=== PATIENT | female | born 1985 | race Caucasian/White ===

== ENCOUNTER 2016-05-24 17:40 | Emergency (ER) | payer OTHER ==
[~2016-05-24 17:40] MED LIST: ACET65SU PO; DIBU1OIN TOP; IBUP800T23 PO; PRENMIS3 PO
[2016-05-24 19:20] LABS: BASO % 0.3 % (0.0-1.0); EOS % 0.6 % (0.0-3.0); LARGE UNSTAINED CELL # 0.1 K/mm3 (0.0-0.4); LARGE UNSTAINED CELL % 1.3 % (0.0-4.0); LYMPH # 0.6 K/mm3 (1.5-4.5); LYMPH % 7.3 % (24.0-44.0); MEAN CORPUSCULAR HEMOGLOBIN 20.1 pg (27.0-33.0); MEAN CORPUSCULAR HGB CONC 30.3 g/dl (32.0-36.5); MEAN CORPUSCULAR VOLUME 66.3 fl (80.0-96.0); MONO # 0.2 K/mm3 (0.0-0.8); MONO % 2.5 % (0.0-5.0); NEUTROPHILS # 6.8 K/mm3 (1.8-7.7); PLATELET COUNT, AUTOMATED 209 k/mm3 (150-450); RED CELL DISTRIBUTION WIDTH 17.6 % (11.5-14.5); WHITE BLOOD COUNT 7.8 K/mm3 (4.0-10.0)
[2016-05-24 19:21] LABS: ADD MORPHOLOGY? YES
[2016-05-24 19:36] LABS: ALBUMIN 3.4 GM/DL (3.2-5.2); ALBUMIN/GLOBULIN RATIO 0.97 (1.00-1.93); ALKALINE PHOSPHATASE 63 U/L (45-117); ALT/SGPT 16 U/L (12-78); ANION GAP 10 MEQ/L (8-16); AST/SGOT 25 U/L (15-37); BILIRUBIN,DIRECT 0.1 MG/DL (0.0-0.2); BILIRUBIN,TOTAL 0.5 MG/DL (0.2-1.0); BLOOD UREA NITROGEN 10 MG/DL (7-18); CALCIUM LEVEL 8.2 MG/DL (8.5-10.1); CARBON DIOXIDE LEVEL 20 MEQ/L (21-32); CHLORIDE LEVEL 107 MEQ/L (98-107); CREATININE FOR GFR 0.51 MG/DL (0.55-1.02); GLOMERULAR FILTRATION RATE > 60.0 (>60); GLUCOSE, FASTING 99 MG/DL (70-105); POTASSIUM SERUM 4.5 MEQ/L (3.5-5.1); SODIUM LEVEL 137 MEQ/L (136-145); TOTAL PROTEIN 6.9 GM/DL (6.4-8.2)
--- NOTE | 2016-05-24 20:00 | REPUSA ---
Clinical history: Right lower quadrant pain. Findings: Real time ultrasound of the right lower quadrant of the abdomen was obtained. The appendix is not clearly visualized. No abnormal bowel is seen. There is trace amount of free fluid appreciate d. No loculated fluid collection is identified. Impression: Trace amount of free fluid in the right lower quadrant. The appendix is not clearly visua lized.
--- NOTE | 2016-05-24 20:00 | REPUSA ---
OBSTETRICAL ULTRASOUND INDICATION: OB screening. FINDINGS: A single live intrauterine gestation was identified with a heart rate of 165 bpm. The amniotic fluid index was normal. The placenta was anterior, without evidence of placenta previa. The fetus was in a variable position. The cervix measures 3.69 cm in length and is closed. Limited visua lized anatomy is unremarkable. BIOMETRIC MEASUREMENTS BPD 2.7 cm HC 9.6 cm AC 7.9 cm FL 1.3 cm IMPRESSION: 1. Single live fetus based on today's measurements at 14 weeks 1 days, with an estimated due date of 11/21/2016. 2. No gross abnormality appreciated.
[2016-05-24] MEDS ORDERED: METOCLOPRAMIDE INJ 10MG/2ML VIAL (J2765) As Ordered ONE (20:06)
[2016-05-24 20:19] LABS: ANISOCYTOSIS 1+; HYPOCHROMASIA 1+; MICROCYTOSIS 3+
[2016-05-24 20:20] LABS: POIKILOCYTOSIS 1+
[2016-05-24 20:21] LABS: SCHISTOCYTES 1+
--- NOTE | 2016-05-24 21:23 | EDDOCDS ---
Nurse's Notes [facility] Name: Mariya Servin Age: 31 yrs Sex: Female : 1985 Arrival Date: 05/24/2016 Time: 17:40 Bed I2 / M2 Private MD: Jasmin - Complete Info On Cds Diagnosis: Vomiting;Diarrhea, unspecified Presentation: 05/24 17:44 Presenting complaint: Patient states: n/v/d, headache since 6am today. 14 weeks ttb . Abd cramping. No vag bleeding. Adult Sepsis Screening: The patient does not have new or worsening altered mentation. Patient's respiratory rate is less than 22. Systolic blood pressure is greater than 100. Patient has a qSOFA score of 0- Negative Sepsis Screen. Suicide/Homicide risk assessment- the patient denies having any suicidal and/or homicidal ideations and does not present with any other emotional, behavioral or mental health complaints. Status: The patient is a dependent. Transition of care: Patient was received from [facility]. 17:44 Acuity: TANNER Level 3 ttb 17:44 Method Of Arrival: Walkin/Carried/Asstd ttb Triage Assessment: 17:46 General: Appears uncomfortable, well nourished. Pain: Location: lower abd cramping ttb 09/21. HIV screening NA for this visit Offered previously. Neurological: Level of Consciousness is awake, alert. Respiratory: No deficits noted. GI: Reports diarrhea, nausea, vomiting. : Reports urinary frequency. Derm: Skin is pale. 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 Vitamin Oral tab 1 tab once daily (Last dose: 05/23/2016) - PSHx: Laparoscopy; - Social history: Smoking status: Patient states was never smoker of tobacco. Patient/guardian denies using alcohol, street drugs, No barriers to communication noted, The patient speaks fluent [place], Speaks appropriately for age. - Family history: Not pertinent. - : The pt / caregiver states he / she is not on anticoagulants. Home medication list is obtained from the patient. - Exposure Risk Screening:: None identified. Screenin:16 Screening information is obtained from the patient. Fall risk: No risks identified. kas2 Assistance ADL's: requires no assistance with activities of daily living. Abuse/DV Screen: The patient / caregiver reports he/she is: not in a situation that causes fear, pain or injury. Nutritional screening: No deficits noted. Advance Directives: Currently, there is no health care proxy. There is no active DNR order. There is no living will. There is no Power of Replenishment Buyer. home support is adequate. Assessment: 19:14 General: Appears in no apparent distress, comfortable, well nourished, well groomed, kas2 Behavior is appropriate for age, cooperative. Pain: Denies pain. Neurological: Level of Consciousness is awake, alert, Oriented to person, place, time. Cardiovascular: Capillary refill < 3 seconds Heart tones S1 S2 present Rhythm is sinus tachycardia No ectopy. Respiratory: Airway is patent Respiratory effort is even, unlabored, Breath sounds are clear bilaterally. GI: Bowel sounds present X 4 quads. Abd is soft and non tender X 4 quads. Derm: Skin is intact, Skin is dry, Skin is pink, warm & dry. Skin temperature is warm. 20:14 General: Appears in no apparent distress, comfortable, Behavior is appropriate for age, kas2 cooperative. Pain: Denies pain. Neurological: Level of Consciousness is awake, alert, Oriented to person, place, time. Respiratory: Airway is patent Respiratory effort is even, unlabored. GI: Reports nausea. Derm: Skin is intact, Skin is dry, Skin is pale, Skin temperature is warm. 20:35 General: Patient up to bathroom to void. Resettled in bed. No apparent distress. kas2 Patient states nausea has subsided. Pale in color. Call griggs within reach. Will continue to monitor.. 20:59 General: Pt laying in bed. Second bolus infusing. Will continue to monitor. ld5 Vital Signs: 17:42 BP 101 / 71; Pulse 117; Resp 16; Temp 99.6(O); Pulse Ox 100% on R/A; Weight 57.61 kg; sew Height 5 ft. 10 in. (177.80 cm); Pain 10/10; 17:42 Body Mass Index 18.22 (57.61 kg, 177.80 cm) sew Vitals: 17:42 Log In Time: May 24, 2016 at 17:31. sew ED Course: 17:42 Patient visited by Marcy King. sew 17:42 Other - Complete Info On Cds is Private Physician. sew 17:42 Patient moved to Waiting sew 17:43 Patient visited by Marcy King. sew 17:43 Patient moved to Pre RCE sew 17:46 Triage Initiated ttb 17:47 Patient moved to Triage 1 ttb 18:24 Devang Pelaez PA is PHCP. mo1 18:24 Tiffany Erickson MD is Attending Physician. mo1 18:31 Patient visited by Devang Pelaez PA. mo1 18:49 Patient moved to I2 / M2 rs6 18:50 Urinalysis Sent. rs6 18:50 Urine Culture Sent. rs6 18:51 Patient visited by Kathrine Stewart PCA. rs6 18:51 Urine collected. Clean catch specimen. Urine specimen sent to lab. rs6 19:00 [facility] Payment Agreement was scanned into [employer] and attached to record. gjb 19:06 Basic Metabolic Profile Sent. kas2 19:06 CBC with Diff Sent. kas2 19:07 Lipase Sent. kas2 19:07 Liver Profile Sent. kas2 19:12 Patient moved to Ultrasound am17 19:16 Patient visited by Cheryl Parry RN. kas2 19:16 Inserted saline lock: 20 gauge in right forearm and blood collected. The patient kas2 tolerated the procedure well. No procedures done that require assistance. 19:35 Patient moved to I2 / M2 am17 19:38 Patient visited by Cheryl Parry RN. kas2 20:14 Patient visited by Cheryl Parry RN. kas2 20:26 US Abd Limited Returned. EDMS 20:26 US Obs Single Gest Returned. EDMS 20:33 Patient visited by Cheryl Parry RN. kas2 20:36 Patient visited by Cheryl Parry RN. kas2 20:59 Patient visited by Carli Smith RN. ld5 21:19 Discontinued IV bleeding controlled, pressure dressing applied, No redness/swelling at kas2 site. 21:22 Patient visited by Cheryl Parry RN. kas2 21:22 The patient / caregiver is instructed regarding the plan of care and ED course. kas2 Administered Medications: 19:06 Drug: NS 0.9% 1000 ml [sodium chloride 0.9 % intravenous solution] Route: IV; Rate: kas2 bolus; Site: right forearm; 20:33 Follow up: IV Status: Completed infusion; IV Intake: 1000ml kas2 20:13 Drug: Metoclopramide 10 mg [metoclopramide 5 mg/mL injection solution] Route: IV; Rate: kas2 40 mg/hr; Infused Over: 15 mins; Site: right antecubital; 20:58 Follow up: IV Status: Completed infusion ld5 20:33 Drug: NS 0.9% 1000 ml [sodium chloride 0.9 % intravenous solution] Route: IV; Rate: kas2 bolus; Site: right antecubital; 21:19 Follow up: IV Status: Completed infusion; IV Intake: 1000ml kas2 Intake: 20:33 IV: 1000.00ml; Total: 1000.00ml. kas2 21:19 IV: 1000.00ml; Total: 2000.00ml. kas2 Order Results: Lab Order: Basic Metabolic Profile; SPEC'M 05/24/16 19:01 Test: GLUCOSE, FASTING; Value: 99; Range: 70-105; Units: MG/DL; Status: F Test: BLOOD UREA NITROGEN; Value: 10; Range: 7-18; Units: MG/DL; Status: F Test: CREATININE FOR GFR; Value: 0.51; Range: 0.55-1.02; Abnormal: Below low normal; Units: MG/DL; Status: F Test: GLOMERULAR FILTRATION RATE; Value: > 60.0; Range: >60; Status: F Test: SODIUM LEVEL; Value: 137; Range: 136-145; Units: MEQ/L; Status: F Test: POTASSIUM SERUM; Value: 4.5; Range: 3.5-5.1; Units: MEQ/L; Status: F Test: CHLORIDE LEVEL; Value: 107; Range: 98-107; Units: MEQ/L; Status: F Test: CARBON DIOXIDE LEVEL; Value: 20; Range: 21-32; Abnormal: Below low normal; Units: MEQ/L; Status: F Test: ANION GAP; Value: 10; Range: 8-16; Units: MEQ/L; Status: F Test: CALCIUM LEVEL; Value: 8.2; Range: 8.5-10.1; Abnormal: Below low normal; Units: MG/DL; Status: F Test Note: ; Units are mL/min/1.73 m2 Chronic Kidney Disease Staging per NKF: Stage I & II GFR >=60 Normal to Mildly Decreased Stage III GFR 30-59 Moderately Decreased Stage IV GFR 15-29 Severely Decreased Stage V GFR <15 Very Little GFR Left ESRD GFR <15 on 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 Lab Order: CBC with Diff; SPEC'M 05/24/16 19:01 Test: WHITE BLOOD COUNT; Value: 7.8; Range: 4.0-10.0; Units: K/mm3; Status: F Test: RED BLOOD COUNT; Value: 4.91; Range: 4.00-5.40; Units: M/mm3; Status: F Test: HEMOGLOBIN; Value: 9.9; Range: 12.0-16.0; Abnormal: Below low normal; Units: g/dl; Status: F Test: HEMATOCRIT; Value: 32.6; Range: 36.0-47.0; Abnormal: Below low normal; Units: %; Status: F Test: MEAN CORPUSCULAR VOLUME; Value: 66.3; Range: 80.0-96.0; Abnormal: Below low normal; Units: fl; Status: F Test: MEAN CORPUSCULAR HEMOGLOBIN; Value: 20.1; Range: 27.0-33.0; Abnormal: Below low normal; Units: pg; Status: F Test: MEAN CORPUSCULAR HGB CONC; Value: 30.3; Range: 32.0-36.5; Abnormal: Below low normal; Units: g/dl; Status: F Test: RED CELL DISTRIBUTION WIDTH; Value: 17.6; Range: 11.5-14.5; Abnormal: Above high normal; Units: %; Status: F Test: PLATELET COUNT, AUTOMATED; Value: 209; Range: 150-450; Units: k/mm3; Status: F Test: NEUTROPHILS %; Value: 88.0; Range: 36.0-66.0; Abnormal: Above high normal; Units: %; Status: F Test: LYMPH %; Value: 7.3; Range: 24.0-44.0; Abnormal: Below low normal; Units: %; Status: F Test: MONO %; Value: 2.5; Range: 0.0-5.0; Units: %; Status: F Test: EOS %; Value: 0.6; Range: 0.0-3.0; Units: %; Status: F Test: BASO %; Value: 0.3; Range: 0.0-1.0; Units: %; Status: F Test: LARGE UNSTAINED CELL %; Value: 1.3; Range: 0.0-4.0; Units: %; Status: F Test: NEUTROPHILS #; Value: 6.8; Range: 1.8-7.7; Units: K/mm3; Status: F Test: LYMPH #; Value: 0.6; Range: 1.5-4.5; Abnormal: Below low normal; Units: K/mm3; Status: F Test: MONO #; Value: 0.2; Range: 0.0-0.8; Units: K/mm3; Status: F Test: EOS #; Value: 0.0; Range: 0.0-0.50; Units: K/mm3; Status: F Test: BASO #; Value: 0.0; Range: 0.0-0.2; Units: K/mm3; Status: F Test: LARGE UNSTAINED CELL #; Value: 0.1; Range: 0.0-0.4; Units: K/mm3; Status: F Lab Order: Lipase; [facility] 05/24/16 19:01 Test: LIPASE; Value: 106; Range: 73-393; Units: U/L; Status: F Lab Order: Liver Profile; [facility] 05/24/16 19:01 Test: AST/SGOT; Value: 25; Range: 15-37; Units: U/L; Status: F Test: ALT/SGPT; Value: 16; Range: 12-78; Units: U/L; Status: F Test: ALKALINE PHOSPHATASE; Value: 63; Range: 45-117; Units: U/L; Status: F Test: BILIRUBIN,TOTAL; Value: 0.5; Range: 0.2-1.0; Units: MG/DL; Status: F Test: BILIRUBIN,DIRECT; Value: 0.1; Range: 0.0-0.2; Units: MG/DL; Status: F Test: TOTAL PROTEIN; Value: 6.9; Range: 6.4-8.2; Units: GM/DL; Status: F Test: ALBUMIN; Value: 3.4; Range: 3.2-5.2; Units: GM/DL; Status: F Test: ALBUMIN/GLOBULIN RATIO; Value: 0.97; Range: 1.00-1.93; Abnormal: Below low normal; Status: F Lab Order: Urinalysis; SPEC'M 05/24/16 18:50 Test: APPEARANCE, URINE; Value: CLEAR; Range: CLEAR; Status: F Test: COLOR, URINE; Value: YELLOW; Range: YELLOW; Status: F Test: PH,URINE; Value: 6.0; Range: 5.0-9.0; Units: UNITS; Status: F Test: SPECIFIC GRAVITY URINE AUTO; Value: 1.025; Range: 1.002-1.035; Status: F Test: PROTEIN, URINE AUTO; Value: NEGATIVE; Range: NEGATIVE; Units: mg/dL; Status: F Test: GLUCOSE, URINE (UA) AUTO; Value: NEGATIVE; Range: NEGATIVE; Units: mg/dL; Status: F Test: KETONE, URINE AUTO; Value: 1+; Range: NEGATIVE; Abnormal: Above high normal; Units: mg/dL; Status: F Test: UROBILINOGEN, URINE AUTO; Value: 0.2; Range: 0.0-2.0; Units: mg/dL; Status: F Test: BILIRUBIN, URINE AUTO; Value: NEGATIVE; Range: NEGATIVE; Status: F Test: NITRITE, URINE AUTO; Value: NEGATIVE; Range: NEGATIVE; Status: F Test: LEUKOCYTE ESTERASE, URINE AUTO; Value: NEGATIVE; Range: NEGATIVE; Status: F Test: BLOOD, URINE BLOOD; Value: NEGATIVE; Range: NEGATIVE; Status: F Test: WBC, URINE AUTO; Value: 0; Range: 0-3; Units: /HPF; Status: F Test: RBC, URINE AUTO; Value: 2; Range: 0-3; Units: /HPF; Status: F Test: BACTERIA, URINE AUTO; Value: NEGATIVE; Range: NEGATIVE; Status: F Test: SQUAMOUS EPITHELIAL CELL UR AU; Value: 2; Range: 0-6; Units: /HPF; Status: F Test: MUCUS, URINE; Value: SMALL; Range: NEGATIVE; Status: F Test: HYALINE CAST, URINE AUTO; Value: 0; Range: 0-1; Units: /LPF; Status: F Lab Order: RBC MORPH PROF NO CHARGE; SPEC'M 05/24/16 19:01 Test: PLATELET ESTIMATE; Range: NORMAL; Status: I Test: HYPOCHROMASIA; Value: 1+; Status: F Test: POIKILOCYTOSIS; Value: 1+; Status: F Test: ANISOCYTOSIS; Value: 1+; Status: F Test: MICROCYTOSIS; Value: 3+; Status: F Test: SCHISTOCYTES; Value: 1+; Status: F Test: PLATELET ESTIMATE; Value: NORMAL; Range: NORMAL; Status: F Radiology Order: US Obs Single Gest Test: US Obs Single Gest REASON FOR EXAMINATION: n/v/d, pelvic pain, 14wks; ; OBSTETRICAL ULTRASOUND; INDICATION: OB screening.; FINDINGS: A single live intrauterine gestation was identified with a heart rate of 165 bpm. The; amniotic fluid index was normal. The placenta was anterior, without evidence of placenta previa. The; fetus was in a variable position. The cervix measures 3.69 cm in length and is closed. Limited visua; lized anatomy is unremarkable.; ; BIOMETRIC MEASUREMENTS; BPD 2.7 cm; HC 9.6 cm; AC 7.9 cm; FL 1.3 cm; IMPRESSION:; 1. Single live fetus based on today's measurements at 14 weeks 1 days, with an estimated due date of; 11/21/2016.; 2. No gross abnormality appreciated.; ; Radiology Order: US Abd Limited Test: US Abd Limited REASON FOR EXAMINATION: Appendicitis; ; Clinical history: Right lower quadrant pain.; Findings: Real time ultrasound of the right lower quadrant of the abdomen was obtained. The appendix; is not clearly visualized. No abnormal bowel is seen. There is trace amount of free fluid appreciate; d. No loculated fluid collection is identified.; Impression: Trace amount of free fluid in the right lower quadrant. The appendix is not clearly visua; lized.; ; Outcome: 21:07 Discharge ordered by Provider. mo1 21:20 Discharge Assessment: patient administered narcotics - no. The following High Risk kas2 Discharge criteria are identified: None. Discharged to home ambulatory, with significant other. Condition: good Condition: stable Condition: improved. Ultrasound Study completed. Property :Personal belongings accompany Pt. 21:22 Patient left the ED. kas2 Signatures: Dispatcher [employer] EDSatya Sigalaa,RN RN ld5 Fernando, Cristine Bland, RN RN ttb Devang Pelaez PA PA mo1 Carol Son am Kathrine Stewart, CAFE SITE ATTENDANT CAFE SITE ATTENDANT rs6 Mercedes Camacho Kim,RN RN kas2 ROSALEED
--- NOTE | 2016-05-24 21:23 | EDDOCDS ---
Physician Documentation [facility] Name: Mariya Servin Age: 31 yrs Sex: Female : 1985 Arrival Date: 05/24/2016 Time: 17:40 Bed I2 / M2 Private MD: Other - Complete Info On Cds Disposition: 05/24/16 21:07 Discharged to Home/Self Care. Impression: Vomiting, Diarrhea, unspecified. - Condition is Stable. - Discharge Instructions: Food Choices to Help Relieve Diarrhea, Adult, Nausea and Vomiting. - Medication Reconciliation, Local Pharmacy Hours form. - Follow up: Private Physician; When: Call to arrange an appointment; Reason: Recheck today's complaints, Continuance of care. - Problem is new. - Symptoms are unchanged. Historical: - Allergies: no known allergies; - Home Meds: 1. Vitamin Oral tab 1 tab once daily (Last dose: 05/23/2016) - PSHx: Laparoscopy; - Social history: Smoking status: Patient states was never smoker of tobacco. Patient/guardian denies using alcohol, street drugs, No barriers to communication noted, The patient speaks fluent Taiwanese, Speaks appropriately for age. - Family history: Not pertinent. - : The pt / caregiver states he / she is not on anticoagulants. Home medication list is obtained from the patient. - Exposure Risk Screening:: None identified. 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 10 in. (177.80 cm); Pain 10/10; 17:42 Body Mass Index 18.22 (57.61 kg, 177.80 cm) sew MDM: 18:35 Financial registration complete. gjb 18:46 NS 0.9% 1000 ml IV at bolus once ordered. mo1 18:46 IV Saline Lock ordered. mo1 18:46 Undress patient appropriately for examination ordered. mo1 18:48 Basic Metabolic Profile Ordered. EDMS 18:48 CBC with Diff Ordered. EDMS 18:48 Lipase Ordered. EDMS 18:48 Liver Profile Ordered. EDMS 18:48 Urinalysis Ordered. EDMS 18:48 Urine Culture Ordered. EDMS 18:48 US Obs Single Gest Ordered. EDMS 18:48 NOTHING BY MOUTH+DIET ordered. EDMS 18:53 US Abd Limited Ordered. EDMS 19:00 [facility] Payment Agreement was scanned into [employer] and attached to record. gjb 19:33 CBC with Diff Reviewed. mo1 19:33 Urinalysis Reviewed. mo1 20:02 Metoclopramide 10 mg IV at 40 mg/hr once over 15 mins ordered. mo1 20:13 Basic Metabolic Profile Reviewed. mo1 20:13 Liver Profile Reviewed. mo1 20:13 Lipase Reviewed. mo1 20:14 RBC MORPH PROF NO CHARGE Reviewed. mo1 20:29 NS 0.9% 1000 ml IV at bolus once ordered. mo1 20:29 RBC MORPH PROF NO CHARGE Reviewed. mo1 20:31 US Abd Limited Reviewed. mo1 20:31 US Obs Single Gest Reviewed. mo1 20:31 CBC with Diff Reviewed. mo1 Administered Medications: 19:06 Drug: NS 0.9% 1000 ml [sodium chloride 0.9 % intravenous solution] Route: IV; Rate: kas2 bolus; Site: right forearm; 20:33 Follow up: IV Status: Completed infusion; IV Intake: 1000ml kas2 20:13 Drug: Metoclopramide 10 mg [metoclopramide 5 mg/mL injection solution] Route: IV; Rate: kas2 40 mg/hr; Infused Over: 15 mins; Site: right antecubital; 20:58 Follow up: IV Status: Completed infusion ld5 20:33 Drug: NS 0.9% 1000 ml [sodium chloride 0.9 % intravenous solution] Route: IV; Rate: kas2 bolus; Site: right antecubital; 21:19 Follow up: IV Status: Completed infusion; IV Intake: 1000ml kas2 Signatures: Dispatcher [employer] EDMS Cristine Loaiza RN RN ttb Devang Pelaez PA PA mo1 Mercedes Camacho Kim, RN RN kas2 Carli Smith RN ld5 The chart was reviewed and I authenticate all verbal orders and agree with the evaluation and treatment provided.Attachments: 19:00 [facility] [place] Agreement gjb MTDD
--- NOTE | 2016-05-26 22:23 | EDDOCDS ---
Physician Documentation [facility] Name: Mariya Servin Age: 31 yrs Sex: Female : 1985 Arrival Date: 05/24/2016 Time: 17:40 Bed I2 / M2 Private MD: Other - Complete Info On Cds Disposition: 05/24/16 21:07 Discharged to Home/Self Care. Impression: Vomiting, Diarrhea, unspecified. - Condition is Stable. - Discharge Instructions: Food Choices to Help Relieve Diarrhea, Adult, Nausea and Vomiting. - Medication Reconciliation, Local Pharmacy Hours form. - Follow up: Private Physician; When: Call to arrange an appointment; Reason: Recheck today's complaints, Continuance of care. - Problem is new. - Symptoms are unchanged. Historical: - Allergies: no known allergies; - Home Meds: 1. Vitamin Oral tab 1 tab once daily (Last dose: 05/23/2016) - PSHx: Laparoscopy; - Social history: Smoking status: Patient states was never smoker of tobacco. Patient/guardian denies using alcohol, street drugs, No barriers to communication noted, The patient speaks fluent Senegalese, Speaks appropriately for age. - Family history: Not pertinent. - : The pt / caregiver states he / she is not on anticoagulants. Home medication list is obtained from the patient. - Exposure Risk Screening:: None identified. 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 10 in. (177.80 cm); Pain 10/10; 17:42 Body Mass Index 18.22 (57.61 kg, 177.80 cm) sew MDM: 18:35 Financial registration complete. gjb 18:46 NS 0.9% 1000 ml IV at bolus once ordered. mo1 18:46 IV Saline Lock ordered. mo1 18:46 Undress patient appropriately for examination ordered. mo1 18:48 Basic Metabolic Profile Ordered. EDMS 18:48 CBC with Diff Ordered. EDMS 18:48 Lipase Ordered. EDMS 18:48 Liver Profile Ordered. EDMS 18:48 Urinalysis Ordered. EDMS 18:48 Urine Culture Ordered. EDMS 18:48 US Obs Single Gest Ordered. EDMS 18:48 NOTHING BY MOUTH+DIET ordered. EDMS 18:53 US Abd Limited Ordered. EDMS 19:00 [facility] Payment Agreement was scanned into [employer] and attached to record. gjb 19:33 CBC with Diff Reviewed. mo1 19:33 Urinalysis Reviewed. mo1 20:02 Metoclopramide 10 mg IV at 40 mg/hr once over 15 mins ordered. mo1 20:13 Basic Metabolic Profile Reviewed. mo1 20:13 Liver Profile Reviewed. mo1 20:13 Lipase Reviewed. mo1 20:14 RBC MORPH PROF NO CHARGE Reviewed. mo1 20:29 NS 0.9% 1000 ml IV at bolus once ordered. mo1 20:29 RBC MORPH PROF NO CHARGE Reviewed. mo1 20:31 US Abd Limited Reviewed. mo1 20:31 US Obs Single Gest Reviewed. mo1 20:31 CBC with Diff Reviewed. mo1 05/25 11:19 T-Sheet-- Draft Copy was scanned into foc[employer]us and attached to record. gb 15:57 Radiology Report was scanned into foc[employer]us and attached to record. gb 17:39 Radiology Report was scanned into foc[employer]us and attached to record. gb Administered Medications: 05/24 19:06 Drug: NS 0.9% 1000 ml [sodium chloride 0.9 % intravenous solution] Route: IV; Rate: kas2 bolus; Site: right forearm; 20:33 Follow up: IV Status: Completed infusion; IV Intake: 1000ml kas2 20:13 Drug: Metoclopramide 10 mg [metoclopramide 5 mg/mL injection solution] Route: IV; Rate: kas2 40 mg/hr; Infused Over: 15 mins; Site: right antecubital; 20:58 Follow up: IV Status: Completed infusion ld5 20:33 Drug: NS 0.9% 1000 ml [sodium chloride 0.9 % intravenous solution] Route: IV; Rate: kas2 bolus; Site: right antecubital; 21:19 Follow up: IV Status: Completed infusion; IV Intake: 1000ml kas2 Signatures: Dispatcher [employer] EDMS Karol Jernigan, Nghia Reg gb Cristine Loaiza, TO RN caitlinb Devang Pelaez PA PA mo1 Mercedes Camacho Kim, RN RN kas2 Carli Smith RN ld5 The chart was reviewed and I authenticate all verbal orders and agree with the evaluation and treatment provided.Attachments: 19:00 [facility] [place] gjb 05/25 11:19 T-Sheet-- Draft Copy gb Chart Complete MTDD
--- NOTE | 2016-05-26 22:23 | EDDOCDS ---
Nurse's Notes [facility] Name: Mariya Servin Age: 31 yrs Sex: Female : 1985 Arrival Date: 05/24/2016 Time: 17:40 Bed I2 / M2 Private MD: Jasmin - Complete Info On Cds Diagnosis: Vomiting;Diarrhea, unspecified Presentation: 05/24 17:44 Presenting complaint: Patient states: n/v/d, headache since 6am today. 14 weeks ttb . Abd cramping. No vag bleeding. Adult Sepsis Screening: The patient does not have new or worsening altered mentation. Patient's respiratory rate is less than 22. Systolic blood pressure is greater than 100. Patient has a qSOFA score of 0- Negative Sepsis Screen. Suicide/Homicide risk assessment- the patient denies having any suicidal and/or homicidal ideations and does not present with any other emotional, behavioral or mental health complaints. Status: The patient is a dependent. Transition of care: Patient was received from [facility]. 17:44 Acuity: TANNER Level 3 ttb 17:44 Method Of Arrival: Walkin/Carried/Asstd ttb Triage Assessment: 17:46 General: Appears uncomfortable, well nourished. Pain: Location: lower abd cramping ttb 09/21. HIV screening NA for this visit Offered previously. Neurological: Level of Consciousness is awake, alert. Respiratory: No deficits noted. GI: Reports diarrhea, nausea, vomiting. : Reports urinary frequency. Derm: Skin is pale. E LEARNING COORDINATOR: 17:46 LMP 02/19/2016 ttb Historical: - Allergies: no known allergies; - Home Meds: 1. Vitamin Oral tab 1 tab once daily (Last dose: 05/23/2016) - PSHx: Laparoscopy; - Social history: Smoking status: Patient states was never smoker of tobacco. Patient/guardian denies using alcohol, street drugs, No barriers to communication noted, The patient speaks fluent Amharic, Speaks appropriately for age. - Family history: Not pertinent. - : The pt / caregiver states he / she is not on anticoagulants. Home medication list is obtained from the patient. - Exposure Risk Screening:: None identified. Screenin:16 Screening information is obtained from the patient. Fall risk: No risks identified. kas2 Assistance ADL's: requires no assistance with activities of daily living. Abuse/DV Screen: The patient / caregiver reports he/she is: not in a situation that causes fear, pain or injury. Nutritional screening: No deficits noted. Advance Directives: Currently, there is no health care proxy. There is no active DNR order. There is no living will. There is no Power of Research Program Manager. home support is adequate. Assessment: 19:14 General: Appears in no apparent distress, comfortable, well nourished, well groomed, kas2 Behavior is appropriate for age, cooperative. Pain: Denies pain. Neurological: Level of Consciousness is awake, alert, Oriented to person, place, time. Cardiovascular: Capillary refill < 3 seconds Heart tones S1 S2 present Rhythm is sinus tachycardia No ectopy. Respiratory: Airway is patent Respiratory effort is even, unlabored, Breath sounds are clear bilaterally. GI: Bowel sounds present X 4 quads. Abd is soft and non tender X 4 quads. Derm: Skin is intact, Skin is dry, Skin is pink, warm & dry. Skin temperature is warm. 20:14 General: Appears in no apparent distress, comfortable, Behavior is appropriate for age, kas2 cooperative. Pain: Denies pain. Neurological: Level of Consciousness is awake, alert, Oriented to person, place, time. Respiratory: Airway is patent Respiratory effort is even, unlabored. GI: Reports nausea. Derm: Skin is intact, Skin is dry, Skin is pale, Skin temperature is warm. 20:35 General: Patient up to bathroom to void. Resettled in bed. No apparent distress. kas2 Patient states nausea has subsided. Pale in color. Call griggs within reach. Will continue to monitor.. 20:59 General: Pt laying in bed. Second bolus infusing. Will continue to monitor. ld5 Vital Signs: 17:42 BP 101 / 71; Pulse 117; Resp 16; Temp 99.6(O); Pulse Ox 100% on R/A; Weight 57.61 kg; sew Height 5 ft. 10 in. (177.80 cm); Pain 10/10; 17:42 Body Mass Index 18.22 (57.61 kg, 177.80 cm) sew Vitals: 17:42 Log In Time: May 24, 2016 at 17:31. sew ED Course: 17:42 Patient visited by Marcy King. sew 17:42 Other - Complete Info On Cds is Private Physician. sew 17:42 Patient moved to Waiting sew 17:43 Patient visited by Marcy King. sew 17:43 Patient moved to Pre RCE sew 17:46 Triage Initiated ttb 17:47 Patient moved to Triage 1 ttb 18:24 Devang Pelaez PA is PHCP. mo1 18:24 Tiffany Erickson MD is Attending Physician. mo1 18:31 Patient visited by Devang Pelaez PA. mo1 18:49 Patient moved to I2 / M2 rs6 18:50 Urinalysis Sent. rs6 18:50 Urine Culture Sent. rs6 18:51 Patient visited by Kathrine Stewart PCA. rs6 18:51 Urine collected. Clean catch specimen. Urine specimen sent to lab. rs6 19:00 [facility] Payment Agreement was scanned into [employer] and attached to record. gjb 19:06 Basic Metabolic Profile Sent. kas2 19:06 CBC with Diff Sent. kas2 19:07 Lipase Sent. kas2 19:07 Liver Profile Sent. kas2 19:12 Patient moved to Ultrasound am17 19:16 Patient visited by Cheryl Parry RN. kas2 19:16 Inserted saline lock: 20 gauge in right forearm and blood collected. The patient kas2 tolerated the procedure well. No procedures done that require assistance. 19:35 Patient moved to I2 / M2 am17 19:38 Patient visited by Cheryl Parry RN. kas2 20:14 Patient visited by Cheryl Parry RN. kas2 20:26 US Abd Limited Returned. EDMS 20:26 US Obs Single Gest Returned. EDMS 20:33 Patient visited by Cheryl Parry RN. kas2 20:36 Patient visited by Cheryl Parry RN. kas2 20:59 Patient visited by Carli Smith,TO. ld5 21:19 Discontinued IV bleeding controlled, pressure dressing applied, No redness/swelling at kas2 site. 21:22 Patient visited by Cheryl Parry RN. kas2 21:22 The patient / caregiver is instructed regarding the plan of care and ED course. [facility] 05/25 11:19 T-Sheet-- Draft Copy was scanned into [employer] and attached to record. gb 15:57 Radiology Report was scanned into [employer] and attached to record. gb 17:39 Radiology Report was scanned into [employer] and attached to record. gb Administered Medications: 05/24 19:06 Drug: NS 0.9% 1000 ml [sodium chloride 0.9 % intravenous solution] Route: IV; Rate: kas2 bolus; Site: right forearm; 20:33 Follow up: IV Status: Completed infusion; IV Intake: 1000ml kas2 20:13 Drug: Metoclopramide 10 mg [metoclopramide 5 mg/mL injection solution] Route: IV; Rate: kas2 40 mg/hr; Infused Over: 15 mins; Site: right antecubital; 20:58 Follow up: IV Status: Completed infusion ld5 20:33 Drug: NS 0.9% 1000 ml [sodium chloride 0.9 % intravenous solution] Route: IV; Rate: kas2 bolus; Site: right antecubital; 21:19 Follow up: IV Status: Completed infusion; IV Intake: 1000ml kas2 Intake: 20:33 IV: 1000.00ml; Total: 1000.00ml. kas2 21:19 IV: 1000.00ml; Total: 2000.00ml. kas2 Order Results: Lab Order: Basic Metabolic Profile; [facility] 05/24/16 19:01 Test: GLUCOSE, FASTING; Value: 99; Range: 70-105; Units: MG/DL; Status: F Test: BLOOD UREA NITROGEN; Value: 10; Range: 7-18; Units: MG/DL; Status: F Test: CREATININE FOR GFR; Value: 0.51; Range: 0.55-1.02; Abnormal: Below low normal; Units: MG/DL; Status: F Test: GLOMERULAR FILTRATION RATE; Value: > 60.0; Range: >60; Status: F Test: SODIUM LEVEL; Value: 137; Range: 136-145; Units: MEQ/L; Status: F Test: POTASSIUM SERUM; Value: 4.5; Range: 3.5-5.1; Units: MEQ/L; Status: F Test: CHLORIDE LEVEL; Value: 107; Range: 98-107; Units: MEQ/L; Status: F Test: CARBON DIOXIDE LEVEL; Value: 20; Range: 21-32; Abnormal: Below low normal; Units: MEQ/L; Status: F Test: ANION GAP; Value: 10; Range: 8-16; Units: MEQ/L; Status: F Test: CALCIUM LEVEL; Value: 8.2; Range: 8.5-10.1; Abnormal: Below low normal; Units: MG/DL; Status: F Test Note: ; Units are mL/min/1.73 m2 Chronic Kidney Disease Staging per NKF: Stage I & II GFR >=60 Normal to Mildly Decreased Stage III GFR 30-59 Moderately Decreased Stage IV GFR 15-29 Severely Decreased Stage V GFR <15 Very Little GFR Left ESRD GFR <15 on ROLL FORGER Lab Order: CBC with Diff; SPEC'M 05/24/16 19:01 Test: WHITE BLOOD COUNT; Value: 7.8; Range: 4.0-10.0; Units: K/mm3; Status: F Test: RED BLOOD COUNT; Value: 4.91; Range: 4.00-5.40; Units: M/mm3; Status: F Test: HEMOGLOBIN; Value: 9.9; Range: 12.0-16.0; Abnormal: Below low normal; Units: g/dl; Status: F Test: HEMATOCRIT; Value: 32.6; Range: 36.0-47.0; Abnormal: Below low normal; Units: %; Status: F Test: MEAN CORPUSCULAR VOLUME; Value: 66.3; Range: 80.0-96.0; Abnormal: Below low normal; Units: fl; Status: F Test: MEAN CORPUSCULAR HEMOGLOBIN; Value: 20.1; Range: 27.0-33.0; Abnormal: Below low normal; Units: pg; Status: F Test: MEAN CORPUSCULAR HGB CONC; Value: 30.3; Range: 32.0-36.5; Abnormal: Below low normal; Units: g/dl; Status: F Test: RED CELL DISTRIBUTION WIDTH; Value: 17.6; Range: 11.5-14.5; Abnormal: Above high normal; Units: %; Status: F Test: PLATELET COUNT, AUTOMATED; Value: 209; Range: 150-450; Units: k/mm3; Status: F Test: NEUTROPHILS %; Value: 88.0; Range: 36.0-66.0; Abnormal: Above high normal; Units: %; Status: F Test: LYMPH %; Value: 7.3; Range: 24.0-44.0; Abnormal: Below low normal; Units: %; Status: F Test: MONO %; Value: 2.5; Range: 0.0-5.0; Units: %; Status: F Test: EOS %; Value: 0.6; Range: 0.0-3.0; Units: %; Status: F Test: BASO %; Value: 0.3; Range: 0.0-1.0; Units: %; Status: F Test: LARGE UNSTAINED CELL %; Value: 1.3; Range: 0.0-4.0; Units: %; Status: F Test: NEUTROPHILS #; Value: 6.8; Range: 1.8-7.7; Units: K/mm3; Status: F Test: LYMPH #; Value: 0.6; Range: 1.5-4.5; Abnormal: Below low normal; Units: K/mm3; Status: F Test: MONO #; Value: 0.2; Range: 0.0-0.8; Units: K/mm3; Status: F Test: EOS #; Value: 0.0; Range: 0.0-0.50; Units: K/mm3; Status: F Test: BASO #; Value: 0.0; Range: 0.0-0.2; Units: K/mm3; Status: F Test: LARGE UNSTAINED CELL #; Value: 0.1; Range: 0.0-0.4; Units: K/mm3; Status: F Lab Order: Lipase; [facility] 05/24/16 19:01 Test: LIPASE; Value: 106; Range: 73-393; Units: U/L; Status: F Lab Order: Liver Profile; [facility] 05/24/16 19:01 Test: AST/SGOT; Value: 25; Range: 15-37; Units: U/L; Status: F Test: ALT/SGPT; Value: 16; Range: 12-78; Units: U/L; Status: F Test: ALKALINE PHOSPHATASE; Value: 63; Range: 45-117; Units: U/L; Status: F Test: BILIRUBIN,TOTAL; Value: 0.5; Range: 0.2-1.0; Units: MG/DL; Status: F Test: BILIRUBIN,DIRECT; Value: 0.1; Range: 0.0-0.2; Units: MG/DL; Status: F Test: TOTAL PROTEIN; Value: 6.9; Range: 6.4-8.2; Units: GM/DL; Status: F Test: ALBUMIN; Value: 3.4; Range: 3.2-5.2; Units: GM/DL; Status: F Test: ALBUMIN/GLOBULIN RATIO; Value: 0.97; Range: 1.00-1.93; Abnormal: Below low normal; Status: F Lab Order: Urinalysis; SPEC'M 05/24/16 18:50 Test: APPEARANCE, URINE; Value: CLEAR; Range: CLEAR; Status: F Test: COLOR, URINE; Value: YELLOW; Range: YELLOW; Status: F Test: PH,URINE; Value: 6.0; Range: 5.0-9.0; Units: UNITS; Status: F Test: SPECIFIC GRAVITY URINE AUTO; Value: 1.025; Range: 1.002-1.035; Status: F Test: PROTEIN, URINE AUTO; Value: NEGATIVE; Range: NEGATIVE; Units: mg/dL; Status: F Test: GLUCOSE, URINE (UA) AUTO; Value: NEGATIVE; Range: NEGATIVE; Units: mg/dL; Status: F Test: KETONE, URINE AUTO; Value: 1+; Range: NEGATIVE; Abnormal: Above high normal; Units: mg/dL; Status: F Test: UROBILINOGEN, URINE AUTO; Value: 0.2; Range: 0.0-2.0; Units: mg/dL; Status: F Test: BILIRUBIN, URINE AUTO; Value: NEGATIVE; Range: NEGATIVE; Status: F Test: NITRITE, URINE AUTO; Value: NEGATIVE; Range: NEGATIVE; Status: F Test: LEUKOCYTE ESTERASE, URINE AUTO; Value: NEGATIVE; Range: NEGATIVE; Status: F Test: BLOOD, URINE BLOOD; Value: NEGATIVE; Range: NEGATIVE; Status: F Test: WBC, URINE AUTO; Value: 0; Range: 0-3; Units: /HPF; Status: F Test: RBC, URINE AUTO; Value: 2; Range: 0-3; Units: /HPF; Status: F Test: BACTERIA, URINE AUTO; Value: NEGATIVE; Range: NEGATIVE; Status: F Test: SQUAMOUS EPITHELIAL CELL UR AU; Value: 2; Range: 0-6; Units: /HPF; Status: F Test: MUCUS, URINE; Value: SMALL; Range: NEGATIVE; Status: F Test: HYALINE CAST, URINE AUTO; Value: 0; Range: 0-1; Units: /LPF; Status: F Lab Order: Urine Culture; SPEC'M 05/24/16 18:50 Test: URINE CULTURE; Value: <EXTERNAL COMMENT eCWMed> FULL REPORT IN LAB NOTES (eCW and Medent).; Status: F Test: URINE CULTURE; Value: URINE CULTURE RESULT NO GROWTH CLINICAL SIGNIFICANCE 1 ORGANISM; Status: F Lab Order: RBC MORPH PROF NO CHARGE; SPEC'M 05/24/16 19:01 Test: PLATELET ESTIMATE; Range: NORMAL; Status: I Test: HYPOCHROMASIA; Value: 1+; Status: F Test: POIKILOCYTOSIS; Value: 1+; Status: F Test: ANISOCYTOSIS; Value: 1+; Status: F Test: MICROCYTOSIS; Value: 3+; Status: F Test: SCHISTOCYTES; Value: 1+; Status: F Test: PLATELET ESTIMATE; Value: NORMAL; Range: NORMAL; Status: F Radiology Order: US Obs Single Gest Test: US Obs Single Gest REASON FOR EXAMINATION: n/v/d, pelvic pain, 14wks; ; OBSTETRICAL ULTRASOUND; INDICATION: OB screening.; FINDINGS: A single live intrauterine gestation was identified with a heart rate of 165 bpm. The; amniotic fluid index was normal. The placenta was anterior, without evidence of placenta previa. The; fetus was in a variable position. The cervix measures 3.69 cm in length and is closed. Limited visua; lized anatomy is unremarkable.; ; BIOMETRIC MEASUREMENTS; BPD 2.7 cm; HC 9.6 cm; AC 7.9 cm; FL 1.3 cm; IMPRESSION:; 1. Single live fetus based on today's measurements at 14 weeks 1 days, with an estimated due date of; 11/21/2016.; 2. No gross abnormality appreciated.; ; Radiology Order: US Abd Limited Test: US Abd Limited REASON FOR EXAMINATION: Appendicitis; ; Clinical history: Right lower quadrant pain.; Findings: Real time ultrasound of the right lower quadrant of the abdomen was obtained. The appendix; is not clearly visualized. No abnormal bowel is seen. There is trace amount of free fluid appreciate; d. No loculated fluid collection is identified.; Impression: Trace amount of free fluid in the right lower quadrant. The appendix is not clearly visua; lized.; ; Outcome: 21:07 Discharge ordered by Provider. mo1 21:20 Discharge Assessment: patient administered narcotics - no. The following High Risk kas2 Discharge criteria are identified: None. Discharged to home ambulatory, with significant other. Condition: good Condition: stable Condition: improved. Ultrasound Study completed. Property :Personal belongings accompany Pt. 21:22 Patient left the ED. kas2 Signatures: Dispatcher [employer] EDMS Karol Jernigan, Reg Reg Carli Valentine,RN RN ld5 Marcy King Teresa RN RN ttb Devang Pelaez PA PA mo1 Carol Son am17 Kathrine Stewart, ANDREE RESAWYER rs6 Mercedes Camacho Kim,RN RN kas2 Chart Complete MTDD
--- NOTE | 2016-05-26 22:23 | EDDOCDS ---
Physician Documentation [facility] Name: Mariya Servin Age: 31 yrs Sex: Female : 1985 Arrival Date: 05/24/2016 Time: 17:40 Bed I2 / M2 Private MD: Other - Complete Info On Cds Disposition: 05/24/16 21:07 Discharged to Home/Self Care. Impression: Vomiting, Diarrhea, unspecified. - Condition is Stable. - Discharge Instructions: Food Choices to Help Relieve Diarrhea, Adult, Nausea and Vomiting. - Medication Reconciliation, Local Pharmacy Hours form. - Follow up: Private Physician; When: Call to arrange an appointment; Reason: Recheck today's complaints, Continuance of care. - Problem is new. - Symptoms are unchanged. Historical: - Allergies: no known allergies; - Home Meds: 1. Vitamin Oral tab 1 tab once daily (Last dose: 05/23/2016) - PSHx: Laparoscopy; - Social history: Smoking status: Patient states was never smoker of tobacco. Patient/guardian denies using alcohol, street drugs, No barriers to communication noted, The patient speaks fluent Salvadorean, Speaks appropriately for age. - Family history: Not pertinent. - : The pt / caregiver states he / she is not on anticoagulants. Home medication list is obtained from the patient. - Exposure Risk Screening:: None identified. HOP PICKER: 05/24 17:46 LMP 02/19/2016 ttb Vital Signs: 17:42 BP 101 / 71; Pulse 117; Resp 16; Temp 99.6(O); Pulse Ox 100% on R/A; Weight 57.61 kg / sew 127.01 lbs; Height 5 ft. 10 in. (177.80 cm); Pain 10/10; 17:42 Body Mass Index 18.22 (57.61 kg, 177.80 cm) sew MDM: 18:35 Financial registration complete. gjb 18:46 NS 0.9% 1000 ml IV at bolus once ordered. mo1 18:46 IV Saline Lock ordered. mo1 18:46 Undress patient appropriately for examination ordered. mo1 18:48 Basic Metabolic Profile Ordered. EDMS 18:48 CBC with Diff Ordered. EDMS 18:48 Lipase Ordered. EDMS 18:48 Liver Profile Ordered. EDMS 18:48 Urinalysis Ordered. EDMS 18:48 Urine Culture Ordered. EDMS 18:48 US Obs Single Gest Ordered. EDMS 18:48 NOTHING BY MOUTH+DIET ordered. EDMS 18:53 US Abd Limited Ordered. EDMS 19:00 [facility] Payment Agreement was scanned into [employer] and attached to record. gjb 19:33 CBC with Diff Reviewed. mo1 19:33 Urinalysis Reviewed. mo1 20:02 Metoclopramide 10 mg IV at 40 mg/hr once over 15 mins ordered. mo1 20:13 Basic Metabolic Profile Reviewed. mo1 20:13 Liver Profile Reviewed. mo1 20:13 Lipase Reviewed. mo1 20:14 RBC MORPH PROF NO CHARGE Reviewed. mo1 20:29 NS 0.9% 1000 ml IV at bolus once ordered. mo1 20:29 RBC MORPH PROF NO CHARGE Reviewed. mo1 20:31 US Abd Limited Reviewed. mo1 20:31 US Obs Single Gest Reviewed. mo1 20:31 CBC with Diff Reviewed. mo1 05/25 11:19 T-Sheet-- Draft Copy was scanned into [employer] and attached to record. gb 15:57 Radiology Report was scanned into [employer] and attached to record. gb 17:39 Radiology Report was scanned into [employer] and attached to record. gb Administered Medications: 05/24 19:06 Drug: NS 0.9% 1000 ml [sodium chloride 0.9 % intravenous solution] Route: IV; Rate: kas2 bolus; Site: right forearm; 20:33 Follow up: IV Status: Completed infusion; IV Intake: 1000ml kas2 20:13 Drug: Metoclopramide 10 mg [metoclopramide 5 mg/mL injection solution] Route: IV; Rate: kas2 40 mg/hr; Infused Over: 15 mins; Site: right antecubital; 20:58 Follow up: IV Status: Completed infusion ld5 20:33 Drug: NS 0.9% 1000 ml [sodium chloride 0.9 % intravenous solution] Route: IV; Rate: kas2 bolus; Site: right antecubital; 21:19 Follow up: IV Status: Completed infusion; IV Intake: 1000ml kas2 Signatures: Dispatcher [employer] EDMS Karol Jernigan, Nghia Reg gb Cristine Loaiza, TO RN caitlinb Devang Pelaez PA PA mo1 Mercedes Camacho Kim, RN RN kas2 Carli Smith RN ld5 The chart was reviewed and I authenticate all verbal orders and agree with the evaluation and treatment provided.Attachments: 19:00 [facility] Payment Agreement gjb 05/25 11:19 T-Sheet-- Draft Copy gb Chart Complete MTDD
== END 2016-05-24 21:22 | disposition home or self-care (01) ==
LOC: M ED 17:40
DX: O21.9 Vomiting of pregnancy, unspecified (principal); O26.891 Other specified pregnancy related conditions, first trimester; R10.9 Unspecified abdominal pain; R19.7 Diarrhea, unspecified; E86.0 Dehydration; Z3A.14 14 weeks gestation of pregnancy
CPT/HCPCS: 36415; 76705; 76811; 80048; 80076; 81001; 83690; 85025; 87086; 96361; 96365; 99284; J2765

== ENCOUNTER 2016-09-21 10:08 | Emergency (ER) | payer OTHER ==
[~2016-09-21] VITALS: Ht 175.3 cm; Wt 63.0 kg
[2016-09-21 10:23] VITALS: BP 113/72
[2016-09-21 11:16] LABS: MEAN CORPUSCULAR HEMOGLOBIN 18.8 pg (27.0-33.0); MEAN CORPUSCULAR HGB CONC 29.7 g/dl (32.0-36.5); MEAN CORPUSCULAR VOLUME 63.2 fl (80.0-96.0); PLATELET COUNT, AUTOMATED 226 k/mm3 (150-450); RED CELL DISTRIBUTION WIDTH 16.8 % (11.5-14.5); WHITE BLOOD COUNT 9.6 K/mm3 (4.0-10.0)
[2016-09-21 11:23] LABS: ANION GAP 9 MEQ/L (8-16); BLOOD UREA NITROGEN 6 MG/DL (7-18); CARBON DIOXIDE LEVEL 23 MEQ/L (21-32); CHLORIDE LEVEL 109 MEQ/L (98-107); CREATININE FOR GFR 0.48 MG/DL (0.55-1.02); GLOMERULAR FILTRATION RATE > 60.0 (>60); GLUCOSE, FASTING 76 MG/DL (70-105); POTASSIUM SERUM 3.6 MEQ/L (3.5-5.1); SODIUM LEVEL 141 MEQ/L (136-145)
[2016-09-21 11:44] LABS: EOSINOPHILS 4 % (0-5)
[2016-09-21 11:45] LABS: ANISOCYTOSIS 1+; HYPOCHROMASIA 3+; MICROCYTOSIS 3+
[2016-09-21] MEDS ORDERED: ACETAMINOPHEN TAB 650MG DOSE (2X325MG) PO ONE (12:15)
[2016-09-21] MEDS ORDERED: PANTOPRAZOLE 40MG INJ (PROTONIX) (C9113) IV ONE (12:30)
--- NOTE | 2016-09-22 19:39 | ECGEPIP ---
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
== END 2016-09-21 13:44 | disposition home or self-care (01) ==
LOC: EDBD 10:08 → M ED 10:31
DX: O99.89 Other specified diseases and conditions complicating pregnancy, childbirth and the puerperium (principal); R07.9 Chest pain, unspecified; O99.019 Anemia complicating pregnancy, unspecified trimester; O99.340 Other mental disorders complicating pregnancy, unspecified trimester; Z3A.31 31 weeks gestation of pregnancy; Z79.899 Other long term (current) drug therapy
CPT/HCPCS: 80048; 82550; 82553; 85025; 93005; 93041; 96374; 99284; C9113

== ENCOUNTER 2017-05-08 20:05 | Emergency (ER) | payer OTHER ==
[2017-05-08] MEDS: ACETAMINOPHEN 325 MG TAB PO (21:25)
[2017-05-08] MEDS: ONDANSETRON 4 MG ORAL DISINTEGRATING TAB (S0181) PO (21:25)
[2017-05-08] MEDS: ALBUTEROL SULFATE 2.5 MG/0.5 ML INH NEB SOLN NEB (21:58)
[2017-05-08 22:38] LABS: INFLUENZA A AMPLIFICATION POSITIVE (NEGATIVE); INFLUENZA B AMPLIFICATION NEGATIVE (NEGATIVE)
== END 2017-05-08 23:00 | disposition home or self-care (01) ==
LOC: M ED 20:05
DX: J09.X2 Influenza due to identified novel influenza A virus with other respiratory manifestations (principal); R05 Cough; R50.9 Fever, unspecified; F41.9 Anxiety disorder, unspecified; Z87.891 Personal history of nicotine dependence
CPT/HCPCS: 71046

== ENCOUNTER 2018-07-21 19:31 | Emergency (ER) | payer OTHER ==
[~2018-07-21] VITALS: Ht 175.3 cm; Wt 56.8 kg
[~2018-07-21 19:31] MED LIST changes: +IBUP1TAB7 PO; -IBUP800T23 PO; +[UNRECOGNIZED DRUG - CODE] PO; +dayquil PO
[2018-07-21 20:44] LABS: BASO # 0.1 10^3/uL (0.0-0.2); EOS # 0.4 10^3/uL (0.0-0.50); EOS % 4.3 % (0.0-3.0); HEMATOCRIT 29.4 % (36.0-47.0); HEMOGLOBIN 8.3 g/dl (12.0-15.5); LYMPH # 2.2 10^3/uL (1.5-4.5); LYMPH % 23.7 % (24.0-44.0); MEAN CORPUSCULAR HEMOGLOBIN 18.2 pg (27.0-33.0); MEAN CORPUSCULAR HGB CONC 28.2 g/dl (32.0-36.5); MEAN CORPUSCULAR VOLUME 64.5 fl (80.0-96.0); MONO # 0.5 10^3/uL (0.0-0.8); MONO % 5.4 % (0.0-5.0); NEUTROPHILS % 65.4 % (36.0-66.0); PLATELET COUNT, AUTOMATED 255 10^3/uL (150-450); RED BLOOD COUNT 4.56 10^6/uL (4.00-5.40); WHITE BLOOD COUNT 9.2 10^3/uL (4.0-10.0)
[2018-07-21 21:05] LABS: ALBUMIN 3.7 GM/DL (3.2-5.2); ALT/SGPT 18 U/L (12-78); BILIRUBIN,DIRECT 0.1 MG/DL (0.0-0.2); BILIRUBIN,TOTAL 0.3 MG/DL (0.2-1.0); BLOOD UREA NITROGEN 18 MG/DL (7-18); CALCIUM LEVEL 8.9 MG/DL (8.5-10.1); CARBON DIOXIDE LEVEL 24 MEQ/L (21-32); CHLORIDE LEVEL 108 MEQ/L (98-107); GLOMERULAR FILTRATION RATE > 60.0 (>60); GLUCOSE, FASTING 98 MG/DL (70-100); LIPASE 248 U/L (73-393); POTASSIUM SERUM 3.8 MEQ/L (3.5-5.1); SODIUM LEVEL 140 MEQ/L (136-145)
[2018-07-21] MEDS ORDERED: NS 1,000 ML IV ONE (21:15)
[2018-07-21] MEDS ORDERED: PROMETHAZINE INJ 25 MG/ML VIAL (J2550) IV ONE (21:15)
[2018-07-21 21:32] LABS: HCG, SERUM QUANTITATIVE < 1.0 MIU/ML
[2018-07-21] MEDS ORDERED: ISOVUE-370 76% 100ML VIAL (Q9967) As Ordered ONE (22:35)
--- NOTE | 2018-07-22 00:13 | REPVR ---
EXAM: CT Abdomen and Pelvis With Contrast EXAM DATE/TIME: 07/21/2018 10:44 PM CLINICAL HISTORY: 33 years old, female; Pain; Abdominal pain; Generalized; Additional info: Pain, sudden onset TECHNIQUE: Imaging protocol: Axial computed tomography images of the abdomen and pelvis with intravenous contrast. Coronal and sagittal reformatted images were created and reviewed. Radiation optimization: All CT scans at this facility use at least one of these dose optimization techniques: automated exposure control; mA and/or kV adjustment per patient size (includes targeted exams where dose is matched to clinical indication); or iterative reconstruction. Contrast material: ISOVUE 370 Contrast volume: 100 ml Contrast route: IV COMPARISON: US OBS DEANNA GEST 05/24/2016 7:21 PM FINDINGS: Lower thorax: No acute findings. ABDOMEN: Liver: Small hyperdensity at the dome of the liver measuring 5 mm, too small to characterize. Gallbladder and bile ducts: Contracted gallbladder. Pancreas: Normal. No ductal dilation. Spleen: Normal. No splenomegaly. Adrenals: Normal. No mass. Kidneys and ureters: Normal. No hydronephrosis. Stomach and bowel: Moderate fecal loading. No bowel dilatation and obstruction. Appendix: Appendix is upper limit of the normal measuring 7 mm with appendicolith without any surrounding inflammatory changes. Findings are unequivocal further evaluation with the WBC count is recommended. PELVIS: Bladder: Unremarkable as visualized. Reproductive: Retroverted uterus. IUD in place . Follicle in the right ovary measuring 11 mm. Cystic structure in the left ovary measuring 12 x 12 mm with irregular enhancing margins likely ruptured prominent follicle. Air in the vagina. Fluid in the vagina like menstrual. ABDOMEN and PELVIS: Intraperitoneal space: Small free fluid in the pelvis and trace free fluid in the right lower quadrant.; Physiologic, Bones/joints: No acute fracture. No dislocation. Soft tissues: Unremarkable. Vasculature: Normal. No abdominal aortic aneurysm. Lymph nodes: Normal. No enlarged lymph nodes. IMPRESSION: Retroverted uterus. IUD in place . Follicle in the right ovary measuring 11 mm. Cystic structure in the left ovary measuring 12 x 12 mm with irregular enhancing margins likely ruptured prominent follicle. Air in the vagina. Fluid in the vagina like menstrual. Small free fluid in the pelvis and trace free fluid in the right lower quadrant.; Physiologic. Appendix is upper limit of the normal measuring 7 mm with appendicolith without any surrounding inflammatory changes. Findings are unequivocal further evaluation with the WBC count is recommended. Electronically signed by: Larisa Vance On 07/22/2018 00:12:32 AM
[2018-07-22] MEDS ORDERED: ZOFR4TAB16 PO (00:18)
[2018-07-22 00:35] VITALS: BP 120/60
== END 2018-07-22 00:36 | disposition home or self-care (01) ==
LOC: EDSEX 19:31 → EDBD 19:31 → M ED 19:31
DX: D64.9 Anemia, unspecified (principal); R10.84 Generalized abdominal pain; R11.0 Nausea; F41.9 Anxiety disorder, unspecified; F32.9 Major depressive disorder, single episode, unspecified; Z97.5 Presence of (intrauterine) contraceptive device
CPT/HCPCS: 36415; 74177; 80048; 80076; 81001; 83690; 84702; 85025; 93041; 96374; 99284; Q9967